=== PATIENT | female | born 1945 ===

== ENCOUNTER 2019-04-05 14:24 | Emergency (ER) | payer OTHER ==
--- NOTE | 2019-04-05 15:27 | UC ---
Respiratory Complaint HPI - HPI Summary HPI Summary: 73 y/o female presents to the urgent care c/o productive cough, nasal congestion w/ yellowish nasal discharge for the past 5 days. Pt reports her had similar symptoms last week and was Dx w/ URI. Symptoms have worsen for the past 2 days. She developed subjective fever and chills, B/L ear pain and sore throat last night. Pt has taken Dayqill and Zyrtec to alleviate symptoms. Pt states pain is 4/10. Pt lives in [place] and is visiting here. Pt denies SOB, chest pain, dizziness, abdominal pain, N/V/D. - History of Current Complaint Chief Complaint: UCRespiratory Stated Complaint: FEVER COUGH Time Seen by Provider: 04/05/19 15:16 Hx Obtained From: Patient Onset/Duration: Gradual Onset, Lasting Days - 5 days, Still Present, Worse Since - yesterday Timing: Constant Severity Initially: Mild Severity Currently: Moderate Pain Intensity: 4 - sore throat and B/L ear pain Pain Scale Used: 0-10 Numeric Character: Cough: Productive, Sputum Description: - yellowish Aggravating Factors: Recumbent Position Alleviating Factors: OTC Meds Associated Signs And Symptoms: Positive: Fever - subjective last night, Chills, URI, Nasal Congestion, Sinus Discomfort. Negative: Dyspnea, Wheezing - Risk Factors Pulmonary Embolism Risk Factors: Negative Cardiac Risk Factors: Negative Pseudomonas Risk Factors: Negative Tuberculosis Risk Factors: Negative - Allergies/Home Medications Allergies/Adverse Reactions: Allergies Allergy/AdvReac Type Severity Reaction Status Date / Time No Known Allergies Allergy Verified 04/05/19 15:08 Home Medications: Home Medications Cetirizine HCl [Zyrtec] 10 mg PO DAILY 04/05/19 [History Confirmed 04/05/19] Multivitamin [Multivitamins] 1 cap PO DAILY 04/05/19 [History Confirmed 04/05/19 ] PMH/Surg Hx/FS Hx/Imm Hx Previously Healthy: Yes - Pt denies PMHX - Surgical History Surgical History: Yes Surgery Procedure, Year, and Place: Hysterectomy- 2017. Tonsillectomy - Family History Known Family History: Positive: None - Pt denies FMHX - Social History Occupation: Unemployed Lives: With Family Alcohol Use: Occasionally Substance Use Type: None Smoking Status (MU): Never Smoked Tobacco Review of Systems All Other Systems Reviewed And Are Negative: Yes Constitutional: Positive: Fever - subjective last night at home Skin: Positive: Negative Eyes: Positive: Negative ENT: Positive: Sore Throat, Ear Ache - B?L ear pain and pressure, Nasal Discharge - yellowish, Sinus Congestion, Sinus Pain/Tenderness Respiratory: Positive: Cough - productive w/ yellowish phlegm Cardiovascular: Positive: Negative Gastrointestinal: Positive: Negative Genitourinary: Positive: Negative Motor: Positive: Negative Neurovascular: Positive: Negative Musculoskeletal: Positive: Negative Neurological: Positive: Negative Psychological: Positive: Negative Is Patient Immunocompromised?: No Physical Exam - Summary Physical Exam Summary: Vital Signs Reviewed: Yes General: well developed, well nourished obese female sitting in the examining table w/o any apparent distress Eyes: Positive: Conjunctiva Clear - PERRLA, EOMI, fundi grossly normal ENT: Positive: Normal ENT inspection, Hearing grossly normal, Pharynx normal, Nasal congestion - edematous and erythematous nasal mucosa, Nasal drainage - yellowish drainage, RT external ear canal clear, RT TM injected w/ erythema, LF external ear canal clear , LF TM WNL, Negative: Tonsillar swelling, Tonsillar exudate Neck: Positive: Supple, Nontender, No Lymphadenopathy Respiratory: no orthopnea or dyspnea. Able to speak in full sentences, no retractions or accessory muscle use, no tripod position, stridor, or head bobbing. Positive breath sounds bilaterally. Mild diffuse scattered rhonchi on b/L lungs,no wheezes, no crackles or rales. Cardiovascular: Positive: RRR, No Murmur, Pulses Normal, Brisk Capillary Refill Abdomen Description: Positive: Nontender, No Organomegaly, Soft. Negative: CVA Tenderness (R), CVA Tenderness (L) Bowel Sounds: Positive: Present Musculoskeletal Exam: Normal Musculoskeletal: Positive: Strength Intact, ROM Intact, No Edema Neurological Exam: Normal Psychological Exam: Normal Skin Exam: Normal Triage Information Reviewed: Yes Vital Signs: Initial Vital Signs Temp 98.8 F 04/05/19 15:09 Pulse 84 04/05/19 15:09 Resp 18 04/05/19 15:09 BP 98/76 04/05/19 15:09 Pulse Ox 96 04/05/19 15:09 Respiratory Course/Dx - Course Course Of Treatment: 73 y/o female presents to the urgent care c/o productive cough, nasal congestion w/ yellowish nasal discharge for the past 5 days. Pt reports her had similar symptoms last week and was Dx w/ URI. Symptoms have worsen for the past 2 days. She developed subjective fever and chills, B/L ear pain and sore throat last night. Pt has taken Dayqill and Zyrtec to alleviate symptoms. Pt states pain is 4/10. Pt lives in [place] and is visiting here. Pt denies SOB, chest pain, dizziness, abdominal pain, N/V/D. Hx obtained. Pt with mild diffuse Rhonchi on B/L posterior lung RT otitis media on examination, O2Sat:96%Chest X-ray ordered to r/o pneumonia. Impression: Hyperinflation consistent w/ COPD, no other acute cardiopulmonary disease. Rapid Strep ordered, result: negative. Influenza A&B: negative. Pt will Tx with Doxycycline PO for Acute bronchitis and Rt otitis media and also Rx Albuterol inhaler and Tessalon tabs PO to alleviate cough . Pt Strongly advised to f/u w/ her PCP if not improvement of symptoms since she may be developing COPD or a reactive airway for further management. d/c instructions explained. Pt understood and agreed w/ plan of care . PT left clinic ambulating and feeling better. - Differential Dx/Diagnosis Differential Diagnosis/HQI/PQRI: Asthma, Bronchitis, Influenza, Lower Resp Infection, Sinusitis, Other - otitis media, pneumonia Provider Diagnosis: Right acute otitis media, Acute bronchitis, Cough Discharge - Sign-Out/Discharge Documenting (check all that apply): Patient Departure - d/c home All imaging exams completed and their final reports reviewed: Yes - Discharge Plan Condition: Stable Disposition: HOME Prescriptions: Albuterol HFA INHALER* [Ventolin HFA Inhaler*] 1 - 2 puff INH Q6H PRN #1 mdi PRN Reason: bronchospasm Benzonatate CAP* [Tessalon 100 MG CAP*] 100 mg PO TID PRN #21 cap PRN Reason: Cough DOXYcycline CAP(*) [DOXYcycline 100MG CAP(*)] 100 mg PO BID #20 cap Patient Education Materials: Acute Bronchitis (ED), COPD (Chronic Obstructive Pulmonary Disease) (ED) Referrals: [facility] [Outside] - 3 Days Additional Instructions: 1-Please take full course of antibiotic to avoid resistance. Take yogurt w/ probiotics or Culturelle to protect your GI system 2-Take Tessalon PO tabs as directed and use the albuterol inhaler to alleviate cough. Increase fluid intake, rest and eat well. 3- If symptoms do not improve or worsen or your develop SOB with fever and severe wheezing please go immediately to the ER further evaluation and treatment. 4- F/u with your PCP in 3 days if not improvement of symptoms for further management you may be developing COPD - Billing Disposition and Condition Condition: STABLE Disposition: Home - Attestation Statements Provider Attestation: I was available for consult. This patient was seen by the JEAN. The patient was not presented to, seen by, or examined by me. -Juany
[2019-04-05 16:14] LABS: Influenza A Molecular NEGATIVE (Negative); Influenza B Molecular NEGATIVE (Negative)
== END 2019-04-05 16:37 | disposition home or self-care (01) ==
LOC: UCEAST 14:24
DX: H66.91 Otitis media, unspecified, right ear (principal); J20.9 Acute bronchitis, unspecified
CPT/HCPCS: 71046; 87651; 99202; G0463